=== PATIENT | female | born 1955 | race Caucasian/White ===

== ENCOUNTER → 2020-04-13 | Outpatient (CLI) | payer OTHER ==
[~2020-04-13] MED LIST: ADVIL100 M2; FLOMAX PO; NATURAL HORMONES; NORCO 5-325 TA1 EACH PO; ZOFRAN 4 MG ORAL4 M1 DIS
== END ==
LOC: CAT 11:49
PROVIDERS: ATTEND Nurse Practitioner
DX: R10.9 Unspecified abdominal pain (principal); M51.36 Other intervertebral disc degeneration, lumbar region; M16.11 Unilateral primary osteoarthritis, right hip; Z87.442 Personal history of urinary calculi

== ENCOUNTER 2020-05-02 16:50 | Emergency (ER) | payer OTHER ==
[~2020-05-02] VITALS: Ht 165.1 cm; Wt 74.4 kg
[2020-05-02 17:30] VITALS: BP 137/72
[2020-05-02 17:45] LABS: URINE BILIRUBIN NEGATIVE (Negative); URINE BLOOD 1+ (Negative); URINE CLARITY SL CLOUDY; URINE COLOR YELLOW; URINE GLUCOSE-RANDOM* NEGATIVE (Negative); URINE KETONES 3+ (Negative); URINE LEUKOCYTES-REFLEX NEGATIVE (Negative); URINE NITRITE-REFLEX NEGATIVE (Negative); URINE PROTEIN (DIPSTICK) NEGATIVE (Negative); URINE SPECIFIC GRAVITY >= 1.030 (1.005-1.035); URINE UROBILINOGEN 0.2 E.U./dl (0.2-1.0)
[2020-05-02 17:49] LABS: URINE REDUCING SUBSTANCE NEGATIVE
[2020-05-02 18:02] LABS: AMORPHOUS URATES Many /LPF (None Seen); CASTS None Seen /LPF (None Seen); SQUAMOUS 4-10 Moderate /LPF (0-3); URINE RBC 3-10 Few /HPF (0-2); URINE WBC-REFLEX 0-5 Rare /HPF (0-5)
[2020-05-02 18:22] LABS: ABSOLUTE NEUTROPHILS 9.6 thou/uL (1.4-8.2); BASOPHILS 0.4 % (0.0-2.0); HEMATOCRIT 39.7 % (37.0-47.0); HEMOGLOBIN 13.5 gm/dL (12.0-15.0); LYMPHOCYTES 5.4 % (24.0-44.0); MCH 31.8 pg (26.0-34.0); MCV 93.4 fL (80.0-100.0); MONOCYTES 2.6 % (1.0-8.0); PLATELET COUNT 243 thou/uL (150-400); POLYS 91.6 % (36.0-66.0); RBC 4.25 mil/uL (4.20-5.00); RDW 13.1 % (10.5-14.5); WBC 10.4 thou/uL (4.0-11.0)
[2020-05-02 18:42] LABS: CALCIUM 8.5 mg/dL (8.5-10.1); POTASSIUM 4.3 mmol/L (3.5-5.1)
[2020-05-02 18:48] LABS: ALBUMIN 4.1 g/dL (3.4-5.0); TOTAL BILIRUBIN 0.6 mg/dL (0.2-1.0); TOTAL PROTEIN 7.3 g/dL (6.4-8.2)
[2020-05-02] MEDS ORDERED: COLESTIPOL HCL1 G1 PO (19:09)
[2020-05-02] MEDS ORDERED: MELOXICAM15 MG PO (19:10)
[2020-05-02] MEDS ORDERED: ACID CONTROLLER20 MG PO (19:10)
[2020-05-02] MEDS ORDERED: IBUPROFEN 600600 M1 PO (19:23)
[2020-05-02] MEDS ORDERED: ZOFRAN ODT4 MG DISSOLVE (19:23)
== END 2020-05-02 19:37 | disposition home or self-care (01) ==
LOC: ER 16:50
PROVIDERS: Emergency Medicine
DX: N20.0 Calculus of kidney (principal); Z79.899 Other long term (current) drug therapy